=== PATIENT | male | born 2005 | race Caucasian/White ===

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

== ENCOUNTER 2025-03-03 02:43 | Emergency (ER) | payer MEDICAID ==
[~2025-03-03] VITALS: Ht 165.1 cm; Wt 70.0 kg
[2025-03-03 02:59] VITALS: O2SAT 99
[2025-03-03] MEDS: FAMOTIDINE 20MG TABLET PO ONE (03:18)
[2025-03-03 03:54] LABS: BASOPHILS % 0.3 % (0.0-2.0); EOSINOPHILS % 2.0 % (0.0-5.0); HEMATOCRIT. 44.7 % (42.0-52.0); HEMOGLOBIN. 14.9 g/dL (14.0-18.0); LYMPHOCYTES % 15.6 % (20.0-50.0); MEAN PLATELET VOLUME 7.4 fl (7.4-10.4); MONOCYTES % 11.2 % (2.0-8.0); NEUTROPHILS % 70.9 % (40.0-76.0); PLATELET 262 x1000/uL (130-400); RED BLOOD CELL COUNT 4.88 mill/uL (4.7-6.1); RED CELL DISTRIBUTION WIDTH 13.5 % (11.6-14.6)
[2025-03-03 04:07] LABS: CREATININE 1.0 mg/dL (0.6-1.3); UREA NITROGEN BLOOD 16 mg/dL (9-23)
[2025-03-03 04:09] LABS: ASPARTATE AMINOTRANSFERASE 33 IU/L (<34); BILIRUBIN DIRECT 0.1 mg/dL (<=3.0); BILIRUBIN TOTAL 0.4 mg/dL (0.1-1.0); PROTEIN TOTAL 7.0 g/dL (6.0-8.3)
[2025-03-03] MEDS ORDERED: IMOD MT (04:17)
[2025-03-03 04:28] VITALS: BP 124/80; PULSE 86; RESP 16; TEMP 37.1; O2SAT 98
== END 2025-03-03 04:30 | disposition home or self-care (01) ==
LOC: ER 02:43
DX: R19.7 Diarrhea, unspecified (principal)
CPT/HCPCS: 36415; 80048; 80076; 85025; 99283

== ENCOUNTER 2025-03-06 00:26 | Inpatient (IN) | payer MEDICAID ==
[~2025-03-06] VITALS: Ht 162.6 cm; Wt 68.0 kg
[~2025-03-06 00:26] MED LIST: IMOD MT
[2025-03-06 00:35] VITALS: O2SAT 100
[2025-03-06] MEDS: SODIUM CHLORIDE 0.9% 1,000 ML IV ONE (04:11)
[2025-03-06 04:23] LABS: HEMATOCRIT. 46.8 % (42.0-52.0); HEMOGLOBIN. 15.7 g/dL (14.0-18.0); MEAN PLATELET VOLUME 8.1 fl (7.4-10.4); PLATELET 232 x1000/uL (130-400); RED BLOOD CELL COUNT 5.16 mill/uL (4.7-6.1); RED CELL DISTRIBUTION WIDTH 13.2 % (11.6-14.6)
[2025-03-06 04:26] LABS: CLARITY URINE CLEAR (CLEAR); COLOR URINE YELLOW (YELLOW); GLUCOSE URINE NEGATIVE (NEGATIVE); KETONES URINE 1+ (NEGATIVE); LEUKOCYTE ESTERASE URINE NEGATIVE (NEGATIVE); NITRITE URINE NEGATIVE (NEGATIVE); OCCULT BLOOD URINE TRACE (NEGATIVE); PH URINE 5.5 (4.5-8.0); PROTEIN URINE NEGATIVE (NEGATIVE); SPECIFIC GRAVITY URINE 1.023 (1.005-1.030); UROBILINOGEN URINE 0.2 E.U./dL (0.2-1.0)
[2025-03-06 04:34] LABS: CREATININE 1.0 mg/dL (0.6-1.3); UREA NITROGEN BLOOD 11 mg/dL (9-23)
[2025-03-06 04:36] LABS: ASPARTATE AMINOTRANSFERASE 24 IU/L (<34); BILIRUBIN DIRECT < 0.1 mg/dL (<=3.0); BILIRUBIN TOTAL 0.3 mg/dL (0.1-1.0); PROTEIN TOTAL 7.5 g/dL (6.0-8.3)
[2025-03-06 05:01] LABS: BACTERIA URINE NONE SEEN; RBC URINE NONE SEEN /hpf (0-2); SQUAMOUS EPITHELIAL CELL URINE NONE SEEN /lpf (RARE/1+); WBC URINE 0-2 /hpf (0-2)
[2025-03-06 06:24] LABS: EOSINOPHILS % MANUAL 2.0 % (0.0-5.0); LYMPHOCYTES % MANUAL 24.0 % (20.0-50.0); MONOCYTES % MANUAL 17.0 % (2.0-8.0); NEUTROPHILS % MANUAL 57.0 % (45.0-75.0)
[2025-03-06 06:26] LABS: PLATELET ESTIMATE NORMAL
[2025-03-06 08:00] VITALS: BP 104/43; PULSE 51; RESP 20; TEMP 36.7; O2SAT 100
[2025-03-06] MEDS: SODIUM CHLORIDE 0.9% 1,000 ML IV SCH (09:22)
[2025-03-06] MEDS: LOPERAMIDE HCL 2MG CAPSULE PO PRN (09:22)
[2025-03-06] MEDS ORDERED: ONDANSETRON HCL 4MG/2ML INJ IV PRN (11:45)
[2025-03-06 12:00] VITALS: BP 90/36; PULSE 48; RESP 20; TEMP 36.4; O2SAT 100
[2025-03-06] MEDS: METRONIDAZOLE 500 MG PREMIX 100 ML IV SCH (13:21)
[2025-03-06] MEDS: SODIUM CHLORIDE 0.9% 500 ML IV ONE (14:59)
[2025-03-06 16:00] VITALS: BP 101/52; PULSE 67; RESP 20; TEMP 36.5; O2SAT 98
[2025-03-06 17:25] LABS: *AMPHETAMINES SCREEN URINE NEGATIVE (NEGATIVE); *BARBITURATES SCREEN URINE NEGATIVE (NEGATIVE); *BENZODIAZEPINES SCREEN URINE NEGATIVE (NEGATIVE); CLARITY URINE CLEAR (CLEAR); COLOR URINE YELLOW (YELLOW); GLUCOSE URINE NEGATIVE (NEGATIVE); KETONES URINE NEGATIVE (NEGATIVE); LEUKOCYTE ESTERASE URINE NEGATIVE (NEGATIVE); NITRITE URINE NEGATIVE (NEGATIVE); OCCULT BLOOD URINE NEGATIVE (NEGATIVE); PH URINE 6.5 (4.5-8.0); PROTEIN URINE NEGATIVE (NEGATIVE); SPECIFIC GRAVITY URINE 1.003 (1.005-1.030); UROBILINOGEN URINE 0.2 E.U./dL (0.2-1.0)
[2025-03-06 17:26] LABS: *COCAINE SCREEN URINE NEGATIVE (NEGATIVE); CANNABINOID URINE SCREEN NEGATIVE (NEGATIVE); ECSTASY MDMA SCREEN URINE NEGATIVE (NEGATIVE); METHADONE URINE SCREEN NEGATIVE (NEGATIVE); OPIATES URINE SCREEN NEGATIVE (NEGATIVE); PHENCYCLIDINE URINE SCREEN NEGATIVE (NEGATIVE)
[2025-03-06] MEDS ORDERED: METR-167 PO (17:48)
[2025-03-06] MEDS ORDERED: LOPE2CAP PO (17:48)
[2025-03-06 18:17] VITALS: BP 90/36; PULSE 48; RESP 18; TEMP 97.5
[2025-03-06 19:40] VITALS: BP 118/69; PULSE 61; RESP 18; TEMP 36.9184
== END 2025-03-06 18:40 | disposition home or self-care (01) | DRG 248 ==
LOC: ER 00:26 → 7EST 04:56 → EDBEDREQTM 06:11 → EDBEDREQ 06:11 → ENRESERV 07:04
PROVIDERS: ADMIT Internal Medicine; ATTEND Internal Medicine
DX: A07.2 Cryptosporidiosis (principal); E86.1 Hypovolemia
CPT/HCPCS: 36415; 80048; 80076; 80305; 81003; 85025; 99285; J3490; J7030

== ENCOUNTER 2025-03-06 19:04 | Emergency (ER) | payer MEDICAID ==
[~2025-03-06] VITALS: Ht 162.6 cm; Wt 70.4 kg
[~2025-03-06 19:04] MED LIST changes: +LOPE2CAP PO; +METR-167 PO
[2025-03-06 19:17] VITALS: BP 110/59; RESP 20; TEMP 37.1; O2SAT 98
[2025-03-06 19:18] VITALS: PULSE 92; O2SAT 98
== END 2025-03-06 20:12 | disposition home or self-care (01) ==
LOC: ER 19:04
DX: G62.9 Polyneuropathy, unspecified (principal); Z79.899 Other long term (current) drug therapy
CPT/HCPCS: 99282